=== PATIENT | male | born 1945 | race Caucasian/White ===

== ENCOUNTER 2017-04-01 14:58 | Emergency (ER) | payer OTHER ==
[2017-04-01 15:10] VITALS: BP 143/83
== END 2017-04-01 15:50 | disposition home or self-care (01) ==
LOC: ED 14:58
DX: S67.01XA Crushing injury of right thumb, initial encounter (principal); E11.9 Type 2 diabetes mellitus without complications; Z79.84 Long term (current) use of oral hypoglycemic drugs; X58.XXXA Exposure to other specified factors, initial encounter; Y93.89 Activity, other specified; Y99.8 Other external cause status; Y92.89 Other specified places as the place of occurrence of the external cause